=== PATIENT | female | born 1955 | race Caucasian/White ===

== ENCOUNTER 2019-10-26 09:29 | Emergency (ER) | payer OTHER, SELFPAY ==
--- NOTE | 2019-10-26 09:40 | ED.BACK ---
HPI - Back Pain/Injury General Chief Complaint: Back Pain/Injury Stated Complaint: sciatica Time Seen by Provider: 10/26/19 09:30 Source: patient and family Mode of arrival: Ambulatory Limitations: no limitations History of Present Illness HPI Narrative: 64F nonsmoker with history cervical spinal stenosis presents with her and a chief complaint of severe lumbar pain with radiation down her right leg. She has had episodes of this pain off and on in the past but this is the worst it has been. She denies any specific injury or obvious inciting event. She states her pain is severe starting in her right buttock and extending laterally down her right leg to her knee. She has worse pain with ambulation and improvement with rest. She denies any numbness, tingling or weakness. She denies any footdrop. She denies any trouble controlling bowel or bladder. She denies any midline pain, fever, use of IV drugs or blood thinners. MD Complaint: back pain Onset (ago): day(s) Duration: constant Similar Symptoms Previously: Yes Location: lumbar spine Severity: moderate Quality: burning and sharp Radiation: right leg Relieving factors: immobilization Exacerbating factors: movement and walking Associated symptoms: denies other symptoms Related Data Previous Rx's Medication Instructions Recorded cyclobenzaprine 10 mg PO TID PRN #14 tab 10/26/19 hydrocodone-acetaminophen 1 tab PO Q4-6H PRN #10 tab 10/26/19 ketorolac 10 mg PO Q6H PRN #14 tab 10/26/19 prednisone 20 mg PO DAILY #5 tab 10/26/19 Allergies Allergy/AdvReac Type Severity Reaction Status Date / Time No Known Allergies Allergy Verified 10/26/19 10:02 Review of Systems Constitutional Constitutional: Denies chills, Denies fatigue, Denies fever(s), Denies frequent falls, Denies lethargy and Denies weakness Eyes Eyes: Denies change in vision, Denies eye discharge, Denies irritation and Denies loss of vision ENT Ears, Nose, Mouth, and Throat: Denies change in voice, Denies dizziness, Denies neck pain, Denies sore throat and Denies throat swelling Cardiovascular Cardiovascular: Denies chest pain, Denies irregular heart rhythm, Denies lightheadedness, Denies palpitations, Denies dyspnea, Denies dyspnea on exertion and Denies orthopnea Respiratory Respiratory: Denies cough, Denies dyspnea, Denies dyspnea on exertion and Denies wheezing Gastrointestinal Gastrointestinal: Denies abdominal pain, Denies change in bowel habits, Denies diarrhea, Denies nausea and Denies vomiting Musculoskeletal Musculoskeletal: Reports abnormal gait, Reports back pain, Denies neck pain and Denies numbness Integumentary/Breasts Skin/Breast: Denies pruritus, Denies erythema, Denies rash and Denies wounds Neurologic Neurologic: Reports abnormal gait, Denies behavioral changes, Denies confusion, Denies dizziness, Denies frequent falls, Denies loss of vision, Denies numbness and Denies weakness Psychiatric Psychiatric: Denies anxiety, Denies behavioral changes, Denies confusion, Denies depression, Denies homicidal ideation and Denies suicidal ideation Endocrine Endocrine: Denies fatigue, Denies flushing and Denies palpitations Hematologic/Lymphatic Hematologic/Lymphatic: Denies easy bruising Allergic/Immunologic Allergic/Immunologic: Denies urticaria, Denies throat swelling and Denies wheezing Patient History Social History Smoking Status: Never smoker Smoking Status: Never smoker Exam Narrative Exam Narrative: GENERAL: [64] year old patient appears stated age. Well-nourished, well-developed patient, in mild distress. HEAD: Atraumatic. Normocephalic. EYES: Pupils equal round and reactive. Extraocular motions intact. No scleral icterus. No injection or drainage. ENT: Nose without bleeding, purulent drainage. Throat without erythema, tonsillar hypertrophy or exudate. Airway patent. NECK: Trachea midline. Non tender CARDIOVASCULAR: Regular rate and rhythm without murmurs, gallops, or rubs. RESPIRATORY: Clear to auscultation. Breath sounds equal bilaterally. No wheezes, rales, or rhonchi. GASTROINTESTINAL: Abdomen soft, non-tender, nondistended. EXTREMITIES: No edema or joint tenderness. 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 Patient exam notes decreased range of motion and muscle spasm, but no CVA tenderness, or vertebral point tenderness. There are no symptoms of cauda equina such as saddle anesthesia, and decreased reflexes, decreased sensation or strength. NEURO: AOx3. SKIN: No rash or erythema of visible areas Initial Vital Signs Initial Vital Signs: Vital Signs Temperature 97.4 F L 10/26/19 09:41 Pulse Rate 80 10/26/19 09:41 Respiratory Rate 16 10/26/19 09:41 Blood Pressure 137/73 10/26/19 09:41 Pulse Oximetry 98 10/26/19 09:41 Course Orders Ordered: ED Orders 10/26/19 09:57 XR lumbar spine 2-3V Stat Discontinued Medications Diazepam (Valium) 2 mg PO NOW ONE Stop: 10/26/19 09:58 Last Admin: 10/26/19 10:44 Dose: 2 mg Documented by: TANNA Ketorolac Tromethamine (Toradol) 60 mg IM NOW ONE Stop: 10/26/19 09:58 Last Admin: 10/26/19 10:45 Dose: 60 mg Documented by: TANNA Prednisone (Deltasone) 40 mg PO NOW ONE Stop: 10/26/19 09:58 Last Admin: 10/26/19 10:45 Dose: 40 mg Documented by: TANNA Vital Signs Vital signs: Vital Signs - 8 hr 10/26/19 11:41 Pulse Rate 65 Respiratory Rate 18 Blood Pressure 139/83 Pulse Oximetry 95 MDM - Back Pain/Injury Imaging Data Lumbar Xray: Radiologist's Impression: [address] [address] XRay Report Signed Patient: Dang Hall R#: [id number] : 1955cct:[id number] Age/Sex: 64 / FDate of Service: 10/26/19 Loc: ED Accession Number: [id number] Procedure: XR lumbar spine 2-3V Ordering Provider: Phillip Gamble D.O. PROCEDURE: XR LUMBAR SPINE 2-3V INDICATIONS: severe back pain with radiculopathy TECHNIQUE: 2 views of the lumbar spine were acquired. COMPARISON: None. FINDINGS: Bones: 5 [id number] vertebrae are present. There is near-normal bony alignment with a slight degree of anterolisthesis of L4 on L5 due to ligamentous laxity from facet osteoarthritis. No vertebral body compression fractures. No suspicious bony lesions. Degenerative disc disease is mild along the LS-spine, and facet osteoarthritis is more prominent, moderate to moderately severe from L3 inferiorly. At L4-5 and L5-S1 significant spinal and foraminal stenosis likely is present due to the degree of facet osteoarthritis and osseous spurring present (slightly more on the left than the right). Soft tissues: Overlying bowel gas pattern is normal. No suspicious soft tissue calcifications. IMPRESSION: Only mild degenerative disc disease is found but moderate to moderately severe degenerative facet osteoarthritis is present from L3 inferiorly and most pronounced at L4-5 and L5-S1. Slight anterolisthesis, grade 1, of L4 on L5 is present. Dictated by: Mati Torres M.D. on 10/26/2019 at 10:32 Approved by: Mati Torres M.D. on 10/26/2019 at 10:33 MDM Narrative Medical decision making narrative: Multiple etiologies of back pain considered including; Epidural abscess, cauda equina, mass occupying lesion, and other considered Discharge Plan Departure Patient Disposition: Home Clinical Impression: Radiculopathy of lumbar region Discharge Date/Time: 10/26/19 11:44 Instructions: DI for Back Pain With Sciatica Activity Restrictions/Additional Instructions: *You have been diagnosed with [ back pain with radiculopathy ] *What to do: *Take medications as directed *Follow up with your primary care provider in 2-3 days, call for an appointment. Let them know you were seen in the Emergency Department and that we ask that you be seen in follow up *Return to ER if you should have any new, worsening or concerning symptoms Prescriptions: New cyclobenzaprine 10 mg tablet 10 mg PO TID PRN (Reason: muscle spasm) Qty: 14 RF: 0 hydrocodone-acetaminophen 5-325 mg tablet 1 tab PO Q4-6H PRN (Reason: pain) Qty: 10 RF: 0 prednisone 20 mg tablet 20 mg PO DAILY Qty: 5 RF: 0 ketorolac 10 mg tablet 10 mg PO Q6H PRN (Reason: pain) Qty: 14 RF: 0 Referrals: Chas Price ARNP [Primary Care Provider] -
[2019-10-26 09:41] VITALS: BP 137/73; PULSE 80; RESP 16; TEMP 36.3; O2SAT 98; BMI 35.4
--- NOTE | 2019-10-26 09:57 | DI.RAD.S_ITS ---
PROCEDURE: XR LUMBAR SPINE 2-3V INDICATIONS: severe back pain with radiculopathy TECHNIQUE: 2 views of the lumbar spine were acquired. COMPARISON: None. FINDINGS: Bones: 5 [id number] vertebrae are present. There is near-normal bony alignment with a slight degree of anterolisthesis of L4 on L5 due to ligamentous laxity from facet osteoarthritis. No vertebral body compression fractures. No suspicious bony lesions. Degenerative disc disease is mild along the LS-spine, and facet osteoarthritis is more prominent, moderate to moderately severe from L3 inferiorly. At L4-5 and L5-S1 significant spinal and foraminal stenosis likely is present due to the degree of facet osteoarthritis and osseous spurring present (slightly more on the left than the right). Soft tissues: Overlying bowel gas pattern is normal. No suspicious soft tissue calcifications. IMPRESSION: Only mild degenerative disc disease is found but moderate to moderately severe degenerative facet osteoarthritis is present from L3 inferiorly and most pronounced at L4-5 and L5-S1. Slight anterolisthesis, grade 1, of L4 on L5 is present. Dictated by: Mati Torres M.D. on 10/26/2019 at 10:32 Approved by: Mati Torres M.D. on 10/26/2019 at 10:33
[2019-10-26] MEDS: diazePAM 2 MG TABLET PO (10:44)
[2019-10-26] MEDS: predniSONE 20 MG TABLET 40 MG PO (10:45)
[2019-10-26] MEDS: KETOROLAC 60 MG/2 ML VIAL IM (10:45)
[2019-10-26 11:41] VITALS: BP 139/83; PULSE 65; RESP 18; O2SAT 95
== END 2019-10-26 11:44 | disposition home or self-care (01) ==
PROVIDERS: Emergency Provider Emergency Medicine; PCP Nurse Practitioner Family
DX: M54.16 Radiculopathy, lumbar region (principal)
CPT/HCPCS: 72100; 96372; 99283; 99284; J1885